=== PATIENT | female | born 1990 | race Caucasian/White ===

== ENCOUNTER 2018-09-09 14:22 | Outpatient (CLI) | payer BC ==
--- NOTE | 2018-09-09 17:26 | CT ---
CT ABDOMEN WITH CONTRAST CT PELVIS WITH CONTRAST: DATE: 09/09/18 HISTORY: 28-year-old female with R19.01 right upper quadrant abdominal mass. Pressure and swelling in right upper abdomen. Rule out abdominal hernia. COMPARISON: None available. TECHNIQUE: IV injection of iodinated contrast media: 70 mL Isovue 370 Oral contrast media: Administered FINDINGS: There is no ventral, inguinal, or Spigelian hernia. Moderate to large amount of colonic stool from ce cum through rectosigmoid junction. No evidence of colonic diverticulitis. 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 Bilaterally symmetrical nephrograms without perfusion defects, cys ts, or solid mass. No hydronephrosis. Bilateral kidneys, abdominal aorta, liver, pancreas, adrenals, spleen, appendix, and urinary bladder, are normal with the exception of a tiny Subcentimeter focal hy podensity somewhere near the junction between the right and left lobes of the liver, too small to maye racterize. Lung bases are clear. No ascites or pneumoperitoneum. Somewhat prominent bilateral adnexa. No destructive osseous lesion. No small bowel dilation. There is no solid or cystic neoplastic mass in the abdominal cavity. IMPRESSION: 1. Moderate to large volume of stool. Recommend clinical correlation for constipation. 2. 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 3. Otherwise negative. JN R POS: TPC
== END 2018-09-09 14:23 | disposition home or self-care (01) ==
LOC: BICCT 14:22
PROVIDERS: ATTEND Specialist
DX: R19.01 Right upper quadrant abdominal swelling, mass and lump (principal); R19.5 Other fecal abnormalities
CPT/HCPCS: 74177